=== PATIENT | male | born 1990 | race Hispanic/Latino ===

== ENCOUNTER 2017-12-09 16:41 | Emergency (ER) | payer OTHER ==
[~2017-12-09] VITALS: Ht 172.7 cm; Wt 83.9 kg
[2017-12-09 17:43] LABS: ABSOLUTE BASOPHIL COUNT 0 /CUMM (0.0-0.2); ABSOLUTE EOSINOPHIL COUNT 0.3 /CUMM (0.0-0.7); ABSOLUTE GRANULOCYTE CT 4.6 /CUMM (1.4-6.5); ABSOLUTE LYMPH COUNT 1.7 /CUMM (1.2-3.4); ABSOLUTE MONOCYTE COUNT 0.7 /CUMM (0.10-0.60); BASOPHIL % 0.7 % (0.0-2.0); EOSINOPHIL % 4.1 % (0-5); GRANULOCYTE % 62.7 % (42.2-75.2); HEMATOCRIT 47.8 % (42-52); MEAN CORPUSCULAR HGB 30.8 PG (27.0-31.0); MEAN CORPUSCULAR HGB CONC 33.6 G/DL (33.0-37.0); MEAN CORPUSCULAR VOLUME 91.7 FL (80.0-94.0); MEAN PLATELET VOLUME 8.7 FL (7.4-10.4); PLATELET COUNT 176 /CUMM (130-400); RBC DISTRIBUTION WIDTH 12.9 % (11.5-14.5); RED BLOOD CELL CT 5.21 /CUMM (4.70-6.10); WHITE BLOOD CELL COUNT 7.4 /CUMM (4.8-10.8)
[2017-12-09] MEDS ORDERED: TRUVADA 200 MG1 EACH PO (18:44)
[2017-12-09] MEDS ORDERED: ISENTRESS400 M1 PO (18:44)
--- NOTE | 2017-12-09 18:45 | ED GENERAL ADULT ---
History of Present Illness General Chief Complaint: General Adult Stated Complaint: "STUCK BY A NEEDLE AT WORK" Source: patient Exam Limitations: no limitations Vital Signs & Intake/Output Vital Signs & Intake/Output Vital Signs Date Time Temp Pulse Resp B/P B/P Pulse O2 O2 Flow FiO2 Mean Ox Delivery Rate 12/09 1711 Room Air 12/09 1646 98.0 89 18 144/94 98 Room Air Allergies Coded Allergies: No Known Allergies (12/09/17) Reconcile Medications Emtricitabine/Tenofovir (Truvada 200 MG-300 MG Tablet) 200 MG-300 MG TABLET 1 TAB PO DAILY HIV PPX Raltegravir Potassium (Isentress) 400 MG TABLET 1 TAB PO BID HIV PPX Triage Note: 27M WORKS WITH GARBAGE AND GOT PRICKED BY A HYPERDERMIC NEEDLE AT 12:20AM (THIS AM). STICK TO LEFT INDEX FINGER PAD. Triage Nurses Notes Reviewed? yes Onset: Abrupt Duration: hour(s): (2), constant, continues in ED Timing: single episode today Injury Environment: work Severity: mild, moderate No Modifying Factors: none HPI: 27-year-old male with no medical history of present evaluation of a needle stick. 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 There was a hypodermic needle in the garbage she was sorting which punctured his left anterior third digit distal finger pad. He reports he did notice some blood on the wound. The needle was then lost. Patient denies any pain in the area. He is unsure where the needle came from. He denies any previous history of HIV hepatitis C. No IV drug use. No other exposures. Currently he feels well has no other concerns. Unsure of his last tetanus shot. Patient states he immediately cleaned his finger with alcohol soap and water (Moody Mcdaniel) Past History Travel History Traveled to [place] past 21 day No Medical History Any Pertinent Medical History? see below for history Surgical History Surgical History: non-contributory Psychosocial History What is your primary language Icelandic Tobacco Use: Current Daily Use Daily Tobacco Use Amount/Type: => 5 Cigarettes daily ETOH Use: denies use Illicit Drug Use: marijuana Family History Hx Contributory? No (Moody Mcdaniel) Review of Systems Review of Systems Constitutional: Reports: no symptoms. EENTM: Reports: no symptoms. Respiratory: Reports: no symptoms. Cardiovascular: Reports: no symptoms. GI: Reports: no symptoms. Genitourinary: Reports: no symptoms. Musculoskeletal: Reports: no symptoms. Skin: Reports: see HPI (puncture wound). Neurological/Psychological: Reports: no symptoms. Hematologic/Endocrine: Reports: no symptoms. Immunologic/Allergic: Reports: no symptoms. All Other Systems: Reviewed and Negative (Moody Mcdaniel) Physical Exam Physical Exam General Appearance: well developed/nourished, no apparent distress, alert, awake Head: atraumatic, normal appearance Eyes: Bilateral: normal appearance, EOMI. Ears, Nose, Throat: hearing grossly normal Neck: normal inspection, supple, full range of motion Respiratory: normal breath sounds, chest non-tender, no respiratory distress, lungs clear Cardiovascular: regular rate/rhythm, normal peripheral pulses Peripheral Pulses: 2+ radial (R), 2+ radial (L) Back: normal inspection, normal range of motion Extremities: normal inspection, normal range of motion, no edema, there is no evidence of puncture wound to the left hand or digits. No active bleeding no swelling or erythema Neurologic/Psych: no motor/sensory deficits, awake, alert, oriented x 3, normal gait, normal mood/affect Skin: intact, normal color, warm/dry Core Measures ACS in differential dx? No CVA/TIA Diagnosis: No Sepsis Present: No Sepsis Focused Exam Completed? No (Moody Mcdaniel) Progress Differential Diagnoses I considered the following diagnoses in my evaluation of the patient: [Hepatitis C exposure, HIV exposure, puncture wound, tetanus exposure] Plan of Care: Orders Procedure Date/time Status HIV EXPOSURE/NEEDLESTICK 12/10 1651 Active HEPT C ANTIBODY 12/10 1651 Active HEPT B SURFACE ANTIBODY 12/10 1651 Active COMPREHENSIVE METABOLIC PANEL 12/09 165 Active CBC WITHOUT DIFFERENTIAL 12/09 165 Complete Laboratory Tests 12/09/17 1708: Anion Gap 6, Estimated GFR > 60, BUN/Creatinine Ratio 12.2, Glucose 93, Calcium 9.3, Total Bilirubin 0.7, AST 24, ALT 24, Alkaline Phosphatase 57, Total Protein 7.3, Albumin 4.0, Globulin 3.3, Albumin/Globulin Ratio 1.2, CBC w Diff NO MAN DIFF REQ, RBC 5.21, MCV 91.7, MCH 30.8, MCHC 33.6, RDW 12.9, MPV 8.7, Gran % 62.7, Lymphocytes % 23.6, Monocytes % 8.9, Eosinophils % 4.1, Basophils % 0.7, Absolute Granulocytes 4.6, Absolute Lymphocytes 1.7, Absolute Monocytes 0.7 H, Absolute Eosinophils 0.3, Absolute Basophils 0, Hep Bs Antibody Pending, Hepatitis C Antibody Pending, HIV 1&2 Antibody Pending Patient presented evaluation after a needlestick. Unknown source. Labs drawn for basic blood work HIV hep C the. Tetanus was updated. Discussed with patient about possible options including HIV prophylaxis. Discussed with patient about extremely low possibility of HIV infection. Patient would like HIV prophylaxis. He'll be given a prescription for issentress and Truvada for 1 month. Discussed possible medication side effects risks and benefits. Advised patient he is to have repeat blood work in one month for HIV hep C hep B testing. Keep the area clean and dry look out for signs of bacterial infection. Discussed return precautions in detail. Patient agrees the plan Initial ED EKG: none (Moody Mcdaniel) Departure Departure Disposition: HOME OR SELF CARE Condition: Stable Clinical Impression Primary Impression: Needle stick injury of finger Qualifiers: Encounter type: initial encounter Qualified Codes: S61.239A - Puncture wound without foreign body of unspecified finger without damage to nail , initial encounter; W27.3XXA - Contact with needle (sewing), initial encounter Referrals: Se SANTIZO,Galindo Gavin MD,Quintin Nye MD,Urbano STRATTON MD,ALO Phillip Patient Has No Primary Care Dr (PCP/Family) Additional Instructions: TAKE ANTI-HIV MEDS DIRECTED. YOU NEED TO JHAVE FOLLOW UP HIV AND HEPATITIS TESTING IN 1 MONTH. YOU SHOULD SEE AN OCCUPATION HEAT SPECALIST OR A PRIMARY CARE doctor for this. See attached list provided primary care doctors. Monitor symptoms return with any concerns. Departure Forms: Customer Survey General Discharge Information Industrial Accident Report Prescriptions: Current Visit Scripts Emtricitabine/Tenofovir (Truvada 200 MG-300 MG Tablet) 1 TAB PO DAILY #30 TAB Raltegravir Potassium (Isentress) 1 TAB PO BID #60 TAB (Moody Mcdaniel) PA/PAIN MANAGEMENT NURSE Co-Sign Statement Statement: ED Attending supervision documentation- [] I saw and evaluated the patient. I have also reviewed all the pertinent lab results and diagnostic results. I agree with the findings and the plan of care as documented in the PA's/PAIN MANAGEMENT NURSE's documentation. [X] I have reviewed the ED Record and agree with the PA's/PAIN MANAGEMENT NURSE's documentation. [] Additions or exceptions (if any) to the PAs/PAIN MANAGEMENT NURSE's note and plan are summarized below: [] (Duke Weber DO) Critical Care Note Critical Care Note Critical Care Time: non-applicable (Moody Mcdaniel)
[2017-12-09 19:10] VITALS: BP 124/66
== END 2017-12-09 19:18 ==
LOC: ERH 16:41
PROVIDERS: Physician Assistant Medical
DX: S61.233A Puncture wound without foreign body of left middle finger without damage to nail, initial encounter (principal); W46.1XXA Contact with contaminated hypodermic needle, initial encounter; Y93.89 Activity, other specified
CPT/HCPCS: 86803; 87389; 90471; 90714